=== PATIENT | female | born 1990 ===

== ENCOUNTER 2022-01-30 14:28 | Outpatient (CLI) | payer OTHER | END 2022-01-30 15:37 | disposition home or self-care (01) | LOC: PRENATAL 14:28 | PROVIDERS: ATTEND Obstetrics & Gynecology Maternal & Fetal Medicine | DX: O35.0XX0 Maternal care for (suspected) central nervous system malformation in fetus, not applicable or unspecified (principal); O99.280 Endocrine, nutritional and metabolic diseases complicating pregnancy, unspecified trimester; Z3A.23 23 weeks gestation of pregnancy ==